=== PATIENT | male | born 1985 ===

== ENCOUNTER 2020-05-29 16:55 | Emergency (ER) | payer SELFPAY ==
[2020-05-29] MEDS ORDERED: Sodium Chloride 0.9% 10 ML Syringe FLUSH PRN (17:38)
[2020-05-29] MEDS ORDERED: Sodium Chloride 0.9% 1,000 ML IV ONE ×2 (17:38→22:09)
[2020-05-29 17:54] LABS: BASE EXCESS ARTERIAL -7 mmol/L ((-2)-(+3)); BICARBONATE,ARTERIAL 17.3 mmol/L (22-26); O2 DELIVERY DEVICE ROOM AIR; O2 SATURATION ARTERIAL 96 % (95-100); PCO2 ARTERIAL 33 mmHg (35-45); PO2 ARTERIAL 94 mmHg (70-100)
[2020-05-29 17:59] LABS: ALLEN TEST LB; O2 FLOW RATE 0
[2020-05-29 18:17] LABS: CHLORIDE,CL 85 mmol/L (98-107)
[2020-05-29] MEDS ORDERED: Insulin Regular, Human 100 Units/ML 3 ML Vial IV ONE (18:49)
--- NOTE | 2020-05-29 19:00 | EDM.PDOC ---
<Percy Villa - Last Filed: 05/29/20 18:55> ED HPI GENERAL MEDICAL PROBLEM - General Chief Complaint: General Stated Complaint: PROBLEM WITH KIDNEYS Time Seen by Provider: 05/29/20 17:30 Source of Information: Reports: Patient, Old Records, Provider ([facility], Ricco CASTILLO), RN, RN Notes Reviewed History Limitations: Reports: No Limitations - History of Present Illness INITIAL COMMENTS - FREE TEXT/NARRATIVE: Pt sent from [facility] with request for evaluation and tx of new onset DM with severe hypertriglyceridemia. HA1c 10.4 today in clinic. Pt admits to increased thirst and urinary frequency, otherwise has no complaints. He state he was told that he was "borderline diabetic" in [place] a year or so ago. Onset: Unknown/Unsure Quality: Reports: Other (Denies pain) Severity: Severe - Related Data Allergies Allergy/AdvReac Type Severity Reaction Status Date / Time No Known Allergies Allergy Verified 05/29/20 17:14 Home Meds: Home Meds Cetirizine HCl 10 mg PO BID PRN 05/29/20 [History] Magnesium Oxide 400 mg PO BID 05/29/20 [History] lisinopriL [Lisinopril] 10 mg PO DAILY 05/29/20 [History] metFORMIN HCl [Metformin HCl] 500 mg PO DAILY 05/29/20 [History] Past Medical History HEENT History: Reports: None Cardiovascular History: Reports: High Cholesterol, Hypertension Gastrointestinal History: Reports: None Genitourinary History: Reports: None Musculoskeletal History: Reports: None Neurological History: Reports: None Psychiatric History: Reports: None Endocrine/Metabolic History: Reports: Diabetes, Type II Hematologic History: Reports: None Immunologic History: Reports: None Oncologic (Cancer) History: Reports: None Dermatologic History: Reports: None Social & Family History - Tobacco Use Tobacco Use Status *Q: Current Every Day Tobacco User Years of Tobacco use: 14 Packs/Tins Daily: 0.5 - Caffeine Use Caffeine Use: Reports: Energy Drinks - Recreational Drug Use Recreational Drug Use: No - Living Situation & Occupation Occupation: Employed ED ROS GENERAL - Review of Systems Review Of Systems: Comprehensive ROS is negative, except as noted in HPI. ED EXAM, GENERAL - Physical Exam Exam: See Below Exam Limited By: No Limitations General Appearance: Alert, WD/WN, No Apparent Distress, Obese Eye Exam: Bilateral Eye: Normal Inspection Nose: Normal Inspection, Normal Mucosa, No Blood Throat/Mouth: Normal Lips, Normal Teeth, Normal Gums, Normal Oropharynx, Normal Voice, No Airway Compromise, Other (very dry oral membranes) Head: Atraumatic, Normocephalic Neck: Normal Inspection, Supple, Non-Tender, Full Range of Motion. No: Lymphadenopathy (L), Lymphadenopathy (R) Respiratory/Chest: No Respiratory Distress, Lungs Clear, Normal Breath Sounds, No Accessory Muscle Use, Chest Non-Tender Cardiovascular: Normal Peripheral Pulses, Regular Rate, Rhythm, No Edema, No Gallop, No JVD, No Murmur, No Rub, Tachycardia GI/Abdominal: Normal Bowel Sounds, Soft, Non-Tender, No Organomegaly, No Distention, No Abnormal Bruit, No Mass Back Exam: Normal Inspection Extremities: Normal Inspection, Normal Range of Motion, Non-Tender, Normal Capillary Refill, No Pedal Edema Neurological: Alert, Oriented, CN II-XII Intact, Normal Cognition, Normal Gait, No Motor/Sensory Deficits Psychiatric: Normal Affect, Normal Mood Skin Exam: Warm, Dry, Intact, Normal Color, No Rash Course - Re-Assessments/Exams Free Text/Narrative Re-Assessment/Exam: 05/29/20 19:01 Care of pt transferred to Isha CELESTIN at 1900HR shift change. Departure - Departure Disposition: DC/Tfer to [facility] Clinical Impression: Hyperglycemia, Hyponatremia - Discharge Information Referrals: PCP,None [Primary Care Provider] - Forms: ED Department Discharge Sepsis Event Note (ED) - Evaluation Sepsis Screening Result: No Definite Risk <Isha Ly - Last Filed: 05/30/20 03:16> Course - Vital Signs Last Recorded V/S: Last Vital Signs Temp 96.9 F 05/29/20 21:08 Pulse 104 H 05/29/20 21:08 Resp 19 05/29/20 21:08 BP 129/74 05/29/20 21:08 Pulse Ox 98 05/29/20 21:08 - Orders/Labs/Meds Orders: Active Orders 24 hr Category Date Time Status Peripheral IV Insertion Adult [OM.PC] Stat Oth 05/29/20 17:38 Ordered Labs: Laboratory Tests 05/29/20 05/29/20 05/29/20 Range/Units 17:52 17:52 17:55 WBC 9.0 (5.0-10.0) 10^3/uL RBC 5.06 (4.6-6.2) 10^6/uL Hgb 16.3 (14.0-18.0) g/dL Hct 41.0 (40.0-54.0) % MCV 81.0 (80-100) fL MCH 32.2 (27.0-34.0) pg MCHC 39.8 H (33.0-35.0) g/dL Plt Count 205 (150-450) 10^3/uL Neut % (Auto) 70.3 (42.2-75.2) % Lymph % (Auto) 13.0 L (20.5-50.1) % Webb % (Auto) 14.6 H (2-8) % Eos % (Auto) 1.9 (1.0-3.0) % Baso % (Auto) 0.2 (0.0-1.0) % Add Manual Diff Yes Neutrophils % (Manual) 68 (42-75) % Band Neutrophils % 1 % Lymphocytes % (Manual) 20 (20-50) % Monocytes % (Manual) 7 (2-8) % Eosinophils % (Manual) 4 H (1-3) % ABG pH 7.35 (7.35-7.45) ABG pCO2 33 L (35-45) mmHg ABG pO2 94 (70-100) mmHg ABG HCO3 17.3 L (22-26) mmol/L ABG O2 Saturation 96 (95-100) % ABG Base Excess -7 L ((-2)-(+3)) mmol/L Chester Test Lb O2 Delivery Device Room air Oxygen Flow Rate 0 Sodium 119 L* (136-145) mmol/L Potassium 4.5 (3.5-5.1) mmol/L Chloride 85 L (98-107) mmol/L Carbon Dioxide < 5 L* (21-32) mmol/L Anion Gap TNP BUN 18 (7-18) mg/dL Creatinine 0.86 (0.70-1.30) mg/dL Est Cr Clr Drug Dosing 119.30 mL/min Estimated GFR (MDRD) > 60 BUN/Creatinine Ratio 20.9 (No establ ref range) Glucose 729 H* (74-99) mg/dL POC Glucose (70-105) mg/dl Calcium 6.6 L (8.5-10.1) mg/dL Total Bilirubin 1.3 H (0.2-1.0) mg/dL AST 82 H (15-37) U/L ALT 60 (16-63) U/L Alkaline Phosphatase 167 H (46-116) U/L Total Protein 7.0 (6.4-8.2) g/dL Albumin 3.4 (3.4-5.0) g/dL Globulin 3.6 Albumin/Globulin Ratio 0.94 Ketones Moderate-40 mg/dl SARS-CoV-2 RNA (ADAM) (NEGATIVE) 05/29/20 05/29/20 05/29/20 Range/Units 18:48 19:16 20:14 WBC (5.0-10.0) 10^3/uL RBC (4.6-6.2) 10^6/uL Hgb (14.0-18.0) g/dL Hct (40.0-54.0) % MCV (80-100) fL MCH (27.0-34.0) pg MCHC (33.0-35.0) g/dL Plt Count (150-450) 10^3/uL Neut % (Auto) (42.2-75.2) % Lymph % (Auto) (20.5-50.1) % Webb % (Auto) (2-8) % Eos % (Auto) (1.0-3.0) % Baso % (Auto) (0.0-1.0) % Add Manual Diff Neutrophils % (Manual) (42-75) % Band Neutrophils % % Lymphocytes % (Manual) (20-50) % Monocytes % (Manual) (2-8) % Eosinophils % (Manual) (1-3) % ABG pH (7.35-7.45) ABG pCO2 (35-45) mmHg ABG pO2 (70-100) mmHg ABG HCO3 (22-26) mmol/L ABG O2 Saturation (95-100) % ABG Base Excess ((-2)-(+3)) mmol/L Chester Test O2 Delivery Device Oxygen Flow Rate Sodium (136-145) mmol/L Potassium (3.5-5.1) mmol/L Chloride (98-107) mmol/L Carbon Dioxide (21-32) mmol/L Anion Gap BUN (7-18) mg/dL Creatinine (0.70-1.30) mg/dL Est Cr Clr Drug Dosing mL/min Estimated GFR (MDRD) BUN/Creatinine Ratio (No establ ref range) Glucose (74-99) mg/dL POC Glucose > 500 H* 462 H* 394 H (70-105) mg/dl Calcium (8.5-10.1) mg/dL Total Bilirubin (0.2-1.0) mg/dL AST (15-37) U/L ALT (16-63) U/L Alkaline Phosphatase (46-116) U/L Total Protein (6.4-8.2) g/dL Albumin (3.4-5.0) g/dL Globulin Albumin/Globulin Ratio Ketones SARS-CoV-2 RNA (ADAM) (NEGATIVE) 05/29/20 05/29/20 05/29/20 Range/Units 21:05 21:22 22:06 WBC (5.0-10.0) 10^3/uL RBC (4.6-6.2) 10^6/uL Hgb (14.0-18.0) g/dL Hct (40.0-54.0) % MCV (80-100) fL MCH (27.0-34.0) pg MCHC (33.0-35.0) g/dL Plt Count (150-450) 10^3/uL Neut % (Auto) (42.2-75.2) % Lymph % (Auto) (20.5-50.1) % Webb % (Auto) (2-8) % Eos % (Auto) (1.0-3.0) % Baso % (Auto) (0.0-1.0) % Add Manual Diff Neutrophils % (Manual) (42-75) % Band Neutrophils % % Lymphocytes % (Manual) (20-50) % Monocytes % (Manual) (2-8) % Eosinophils % (Manual) (1-3) % ABG pH (7.35-7.45) ABG pCO2 (35-45) mmHg ABG pO2 (70-100) mmHg ABG HCO3 (22-26) mmol/L ABG O2 Saturation (95-100) % ABG Base Excess ((-2)-(+3)) mmol/L Chester Test O2 Delivery Device Oxygen Flow Rate Sodium 126 L (136-145) mmol/L Potassium 3.6 (3.5-5.1) mmol/L Chloride 90 L (98-107) mmol/L Carbon Dioxide < 5 L* (21-32) mmol/L Anion Gap TNP BUN 16 (7-18) mg/dL Creatinine 1.08 (0.70-1.30) mg/dL Est Cr Clr Drug Dosing 95.00 mL/min Estimated GFR (MDRD) > 60 BUN/Creatinine Ratio (No establ ref range) Glucose 448 H* (74-99) mg/dL POC Glucose 333 H 306 H (70-105) mg/dl Calcium 6.7 L (8.5-10.1) mg/dL Total Bilirubin (0.2-1.0) mg/dL AST (15-37) U/L ALT (16-63) U/L Alkaline Phosphatase (46-116) U/L Total Protein (6.4-8.2) g/dL Albumin (3.4-5.0) g/dL Globulin Albumin/Globulin Ratio Ketones SARS-CoV-2 RNA (ADAM) (NEGATIVE) 05/29/20 05/29/20 05/29/20 Range/Units 22:07 23:08 23:16 WBC (5.0-10.0) 10^3/uL RBC (4.6-6.2) 10^6/uL Hgb (14.0-18.0) g/dL Hct (40.0-54.0) % MCV (80-100) fL MCH (27.0-34.0) pg MCHC (33.0-35.0) g/dL Plt Count (150-450) 10^3/uL Neut % (Auto) (42.2-75.2) % Lymph % (Auto) (20.5-50.1) % Webb % (Auto) (2-8) % Eos % (Auto) (1.0-3.0) % Baso % (Auto) (0.0-1.0) % Add Manual Diff Neutrophils % (Manual) (42-75) % Band Neutrophils % % Lymphocytes % (Manual) (20-50) % Monocytes % (Manual) (2-8) % Eosinophils % (Manual) (1-3) % ABG pH (7.35-7.45) ABG pCO2 (35-45) mmHg ABG pO2 (70-100) mmHg ABG HCO3 (22-26) mmol/L ABG O2 Saturation (95-100) % ABG Base Excess ((-2)-(+3)) mmol/L Chester Test O2 Delivery Device Oxygen Flow Rate Sodium (136-145) mmol/L Potassium (3.5-5.1) mmol/L Chloride (98-107) mmol/L Carbon Dioxide (21-32) mmol/L Anion Gap BUN (7-18) mg/dL Creatinine (0.70-1.30) mg/dL Est Cr Clr Drug Dosing mL/min Estimated GFR (MDRD) BUN/Creatinine Ratio (No establ ref range) Glucose 326 H (74-99) mg/dL POC Glucose 196 H (70-105) mg/dl Calcium (8.5-10.1) mg/dL Total Bilirubin (0.2-1.0) mg/dL AST (15-37) U/L ALT (16-63) U/L Alkaline Phosphatase (46-116) U/L Total Protein (6.4-8.2) g/dL Albumin (3.4-5.0) g/dL Globulin Albumin/Globulin Ratio Ketones SARS-CoV-2 RNA (ADAM) Negative (NEGATIVE) Meds: Medications Discontinued Medications Generic Name Dose Route Start Last Admin Trade Name Freq PRN Reason Stop Dose Admin Sodium Chloride 1,000 mls @ 999 mls/hr 05/29/20 17:38 05/29/20 18:15 Normal Saline IV 05/29/20 18:38 999 mls/hr .BOLUS ONE Administration Insulin Regular in 0.9 % NACL 100 unit in 100 mls @ 13.154 mls/hr 05/29/20 19:15 05/29/20 19:16 Myxredlin 100 Unit/100 Ml IV 0.1 units/kg/hr TITRATE LOURDES 13.154 mls/hr Administration Protocol 0.1 UNITS/KG/HR Sodium Chloride 1,000 mls @ 200 mls/hr 05/29/20 22:09 05/29/20 22:12 Normal Saline IV 05/30/20 03:08 200 mls/hr .BOLUS ONE Administration Insulin Human Regular 10 unit 05/29/20 18:49 05/29/20 18:57 Humulin R IV 05/29/20 18:50 10 unit ONETIME ONE Administration Sodium Chloride 10 ml 05/29/20 17:38 05/29/20 18:10 Saline Flush FLUSH 10 ml ASDIRECTED PRN Administration Keep Vein Open - Re-Assessments/Exams Free Text/Narrative Re-Assessment/Exam: [address] Busch recommend tx Alt. No bed available at [facility]. [facility] accepting patient. Tx via [facility]. Departure - Departure Time of Disposition: 23:25 Condition: Good - Discharge Information *PRESCRIPTION DRUG MONITORING PROGRAM REVIEWED*: No *COPY OF PRESCRIPTION DRUG MONITORING REPORT IN PATIENT RYAN: No Sepsis Event Note (ED) - Focused Exam Vital Signs: Vital Signs Temp Pulse Resp BP Pulse Ox 05/29/20 21:08 96.9 F 104 H 19 129/74 98 05/29/20 17:07 97.8 F 106 H 20 162/86 H
[2020-05-29 19:01] LABS: SODIUM,NA 119 mmol/L (136-145)
[2020-05-29 21:45] LABS: CHLORIDE,CL 90 mmol/L (98-107); SODIUM,NA 126 mmol/L (136-145)
== END 2020-05-29 23:19 ==
LOC: DL.ED 16:55
DX: E11.65 Type 2 diabetes mellitus with hyperglycemia (principal); E87.1 Hypo-osmolality and hyponatremia; I10 Essential (primary) hypertension; E66.9 Obesity, unspecified; Z68.41 Body mass index [BMI] 40.0-44.9, adult; F17.210 Nicotine dependence, cigarettes, uncomplicated; Z20.822 Contact with and (suspected) exposure to COVID-19; Z79.84 Long term (current) use of oral hypoglycemic drugs; Z79.899 Other long term (current) drug therapy
CPT/HCPCS: 36415; 36600; 80048; 80053; 82009; 82803; 82947; 82962; 85025; 99284; 99285; J1815-GY; J7030; U0002

== ENCOUNTER 2022-08-07 07:24 | Emergency (ER) | payer OTHER, BC | END 2022-08-07 08:48 | disposition home or self-care (01) | LOC: DL.ED 07:24 | DX: S16.1XXA Strain of muscle, fascia and tendon at neck level, initial encounter (principal); S20.211A Contusion of right front wall of thorax, initial encounter; S69.92XA Unspecified injury of left wrist, hand and finger(s), initial encounter; E78.00 Pure hypercholesterolemia, unspecified; I10 Essential (primary) hypertension; E11.9 Type 2 diabetes mellitus without complications; Z79.4 Long term (current) use of insulin; Z79.899 Other long term (current) drug therapy; V49.40XA Driver injured in collision with unspecified motor vehicles in traffic accident, initial encounter; Y92.410 Unspecified street and highway as the place of occurrence of the external cause | CPT/HCPCS: 70450; 71100-RT; 72125; 73140-F2; 99284 ==

== ENCOUNTER 2022-08-11 18:37 | Emergency (ER) | payer BC ==
[2022-08-11] MEDS: Sodium Chloride 0.9% 10 ML Syringe FLUSH PRN (19:45)
[2022-08-11 20:42] LABS: AMPHETAMINES,URINE NEGATIVE (NEGATIVE); BARBITURATES,URINE NEGATIVE (NEGATIVE); BENZODIAZEPINE,URINE NEGATIVE (NEGATIVE); MDMA (ECSTASY), URINE NEGATIVE (NEGATIVE); METHADONE,URINE NEGATIVE (NEGATIVE); METHAMPHETAMINES,URINE NEGATIVE (NEGATIVE); OPIATES,URINE NEGATIVE (NEGATIVE); OXYCODONE,URINE NEGATIVE (NEGATIVE); PHENCYCLIDINE,URINE NEGATIVE (NEGATIVE); TCA,URINE NEGATIVE (NEGATIVE)
[2022-08-11 21:32] LABS: ANION GAP 24.2 mEq/L (7-13)
[2022-08-11] MEDS: Iopamidol 612 MG/ML 100 ML Bottle IVPUSH ONE (21:36)
[2022-08-11] MEDS: Sodium Chloride 0.9% 1,000 ML IV ONE ×3 (21:46→23:14)
[2022-08-11] MEDS ORDERED: 50% Dextrose in Water 50 ML Syringe IVPUSH PRN (21:50)
[2022-08-11] MEDS ORDERED: Glucagon,Human Recombinant 1 MG Vial IM PRN (21:50)
[2022-08-11] MEDS: Insulin Regular, Human 100 Units/ML 3 ML Vial IV ONE (22:01)
[2022-08-11 22:15] LABS: O2 DELIVERY DEVICE ROOM AIR
[2022-08-11 22:23] LABS: BASE EXCESS VENOUS -10 mmol/l ((-2)-(+3)); BICARBONATE,VENOUS 15 mmol/l (19-25); O2 SATURATION VENOUS 92 % (60-80); PCO2 VENOUS 26 mmHg (41-51); PH,VENOUS 7.37 (7.31-7.41); PO2 VENOUS 64 mmHg (35-42)
[2022-08-11] MEDS: Lidocaine 1% with EPINEPHrine 1:100,000 20 ML MDV INJECT ONE (22:36)
[2022-08-11] MEDS: Vancomycin 2 GM in Sodium Chloride 0.9% 500 ML IV ONE (23:15)
== END 2022-08-12 01:40 | disposition home or self-care (01) ==
LOC: DL.ED 18:37
DX: L02.215 Cutaneous abscess of perineum (principal); E87.1 Hypo-osmolality and hyponatremia; E11.65 Type 2 diabetes mellitus with hyperglycemia; I10 Essential (primary) hypertension; Z79.899 Other long term (current) drug therapy; Z79.84 Long term (current) use of oral hypoglycemic drugs
CPT/HCPCS: 36415; 74177; 80048; 80305; 81001; 82009; 82150; 82803; 82947; 83605; 83690; 85025; 85610; 87040; 87070; 93005; 93010; 96361; 96365; 96366; 99284; J1815; J3370; J3490; J7030; J7040; Q9967

== ENCOUNTER 2023-05-19 07:02 | Day surgery (SDC) | payer BC ==
[~2023-05-19 07:02] MED LIST: Dextrose 5%-0.45% NaCl 1,000 ML IV SCH; Sodium Chloride 0.9% 10 ML Syringe FLUSH PRN; Sodium Chloride 0.9% 10 ML Syringe FLUSH SCH
[2023-05-19] MEDS ORDERED: Midazolam 1 MG/ML 2 ML SDV IV ONE ×7 (07:28→08:07)
[2023-05-19] MEDS ORDERED: fentaNYL 100 MCG/2 ML SDV ONE (07:28)
[2023-05-19] MEDS ORDERED: Midazolam 1 MG/ML 2 ML SDV ONE (07:28)
[2023-05-19] MEDS ORDERED: fentaNYL 100 MCG/2 ML SDV IV ONE ×5 (07:28→08:10)
== END 2023-05-19 09:45 | disposition home or self-care (01) ==
LOC: DL.ENDO 07:02
PROVIDERS: ATTEND Internal Medicine Gastroenterology
DX: D12.0 Benign neoplasm of cecum (principal); K57.30 Diverticulosis of large intestine without perforation or abscess without bleeding; I10 Essential (primary) hypertension; E11.9 Type 2 diabetes mellitus without complications; E78.5 Hyperlipidemia, unspecified; E66.09 Other obesity due to excess calories; F17.210 Nicotine dependence, cigarettes, uncomplicated
CPT/HCPCS: J2250; J3010; J7042

== ENCOUNTER 2024-01-31 16:07 | Emergency (ER) | payer BC ==
[2024-01-31] MEDS ORDERED: Sodium Chloride 0.9% 10 ML Syringe FLUSH PRN (16:33)
[2024-01-31 16:53] LABS: BASOPHILS PERCENT AUTO 0.4 % (0.0-1.0); EOSINOPHILS PERCENT AUTO 4.9 % (1.0-3.0); HEMATOCRIT 44.4 % (40.0-54.0); HEMOGLOBIN 15.2 g/dL (14.0-18.0); LYMPHOCYTES PERCENT AUTO 26.2 % (20.5-50.1); MEAN CORPUSCULAR HEMOGLOBIN 28.9 pg (27.0-34.0); MEAN CORPUSCULAR HGB CONC 34.2 g/dL (33.0-35.0); MEAN CORPUSCULAR VOLUME 84.4 fL (80-100); MONOCYTES PERCENT AUTO 6.5 % (2-8); PLATELET COUNT,PLT 208 10^3/uL (150-450); RED BLOOD CELL COUNT 5.26 10^6/uL (4.6-6.2); WHITE BLOOD CELL COUNT,WBC 6.7 10^3/uL (5.0-10.0)
[2024-01-31 17:09] LABS: ANION GAP 17.7 mEq/L (7-13); BLOOD UREA NITROGEN,BUN 15 mg/dL (7-18); CALCIUM 9.2 mg/dL (8.5-10.1); CARBON DIOXIDE,CO2 23 mmol/L (21-32); CHLORIDE,CL 104 mmol/L (98-107); GLUCOSE RANDOM 138 mg/dL (70-99); POTASSIUM,K 3.7 mmol/L (3.5-5.1); SODIUM,NA 141 mmol/L (136-145)
[2024-01-31 17:10] LABS: ESTIMATED GFR 100 mL/min (>=60); ETHANOL BLOOD MEDICAL < 3 mg/dL (0)
[2024-01-31 17:12] LABS: PROTHROMBIN TIME 10.4 SEC (9.0-12.0); PTT,PARTIAL THROMBOPLSTIN TIME 24.3 SEC (22.0-34.0)
[2024-01-31 17:22] LABS: AMPHETAMINES,URINE NEGATIVE (NEGATIVE); BARBITURATES,URINE NEGATIVE (NEGATIVE); BENZODIAZEPINE,URINE NEGATIVE (NEGATIVE); MDMA (ECSTASY), URINE NEGATIVE (NEGATIVE); METHADONE,URINE NEGATIVE (NEGATIVE); METHAMPHETAMINES,URINE NEGATIVE (NEGATIVE); OPIATES,URINE NEGATIVE (NEGATIVE); OXYCODONE,URINE NEGATIVE (NEGATIVE); PHENCYCLIDINE,URINE NEGATIVE (NEGATIVE); TCA,URINE NEGATIVE (NEGATIVE)
[2024-01-31] MEDS: Sodium Chloride 0.9% 1,000 ML IV ONE (17:24)
[2024-01-31] MEDS: Diphtheria,Pertussis(Acell),Tetanus Vaccine 0.5 ML Syringe IM ONE (17:38)
== END 2024-01-31 18:20 | disposition home or self-care (01) ==
LOC: DL.ED 16:07
DX: S00.83XA Contusion of other part of head, initial encounter (principal); I10 Essential (primary) hypertension; E78.00 Pure hypercholesterolemia, unspecified; K21.9 Gastro-esophageal reflux disease without esophagitis; E11.9 Type 2 diabetes mellitus without complications; Z79.84 Long term (current) use of oral hypoglycemic drugs; Z23 Encounter for immunization; Z79.85 Long-term (current) use of injectable non-insulin antidiabetic drugs; Z79.899 Other long term (current) drug therapy; W10.9XXA Fall (on) (from) unspecified stairs and steps, initial encounter; Y93.89 Activity, other specified
CPT/HCPCS: 36415; 70450; 70486; 71046; 72125; 80048; 80305; 80307; 85025; 85610; 85730; 90471; 90715; 96360; 99284; J7030; 99283

== ENCOUNTER 2024-12-10 19:49 | Emergency (ER) | payer BC ==
[2024-12-10] MEDS: Take Home: Cephalexin 500 MG Cap, 6 Cap Pack PO ONE (21:11)
== END 2024-12-10 21:17 | disposition home or self-care (01) ==
LOC: DL.ED 19:49
DX: L20.82 Flexural eczema (principal); L01.00 Impetigo, unspecified; I10 Essential (primary) hypertension; E78.00 Pure hypercholesterolemia, unspecified; E78.5 Hyperlipidemia, unspecified; K21.9 Gastro-esophageal reflux disease without esophagitis; E66.9 Obesity, unspecified; F17.210 Nicotine dependence, cigarettes, uncomplicated; Z79.84 Long term (current) use of oral hypoglycemic drugs; Z79.899 Other long term (current) drug therapy
CPT/HCPCS: 99283; A9270